=== PATIENT | male | born 1960 | race Two or more races ===

== ENCOUNTER 2019-03-29 07:24 | Emergency (ER) | payer MEDICAID, OTHER ==
[~2019-03-29] VITALS: Ht 175.3 cm; Wt 86.2 kg
[2019-03-29 07:27] VITALS: BP 116/60
[2019-03-29] MEDS ORDERED: KETOROLAC TROMETH 60MG/2ML VIAL IM ONE (08:45)
== END 2019-03-29 09:07 | disposition home or self-care (01) ==
LOC: ER 07:27
DX: B34.9 Viral infection, unspecified (principal); F12.10 Cannabis abuse, uncomplicated
CPT/HCPCS: 71046; 81002; 82962; 96372; 99283; J1885